=== PATIENT | female | born 1990 | race Hispanic/Latino ===

== ENCOUNTER → 2023-01-08 16:12 | Outpatient (CLI) | payer OTHER, SELFPAY ==
--- NOTE | 2023-01-08 16:15 | DI.US.S_ITS ---
PROCEDURE: US OB <= 14 WEEKS FETUS INDICATIONS: Dating and viability OUTSIDE/PRIOR DATING DATA: Last menstrual period (LMP): Unknown LMP-based estimated date of delivery (KRISTIN): Unknown First dating scan (date and location): 01/08/2023 Estimated date of delivery (KRISTIN) from first dating scan: 08/24/2023 The calculations are made using the working KRISTIN of 08/24/2023 TECHNIQUE: Real-time scanning was performed of the fetus and maternal pelvic organs, with image documentation. Endovaginal scanning was also performed to better visualize the fetus and maternal ovaries. COMPARISON: None. FINDINGS: Embryo: Single intrauterine gestational sac is seen with fetus and yolk sac seen. [place]-rump length measures 1.31 cm. Estimated gestational age is 7 weeks, 3 days. Heart rate: 180 beats per minute. Maternal organs: Ovaries are not well seen. No gross abnormality is seen in bilateral adnexa. IMPRESSION: 1. Single live intrauterine gestation with fetus and yolk sac seen. heart rate is 180 beats per minute. Estimated gestational age based on current study is 7 weeks, 3 days. We strive to produce accurate, complete, and clear reports of imaging services. To assist us in improving patient care, this report was composed using standard report templates and voice recognition software. Therefore, it may contain abnormal punctuation, insertions and/or omissions. Occasional wrong-word or sound-alike substitutions may occur. Though we review the report and make efforts to correct it, we do recommend that the report be read carefully in proper context to recognize any text inaccuracies. Dictated by: Marc Cochran M.D. on 01/09/2023 at 9:06 Approved by: Marc Cochran M.D. on 01/09/2023 at 9:07
== END ==
PROVIDERS: Referring Provider Obstetrics & Gynecology; Visit Provider Obstetrics & Gynecology
DX: Z34.81 Encounter for supervision of other normal pregnancy, first trimester (principal); Z3A.01 Less than 8 weeks gestation of pregnancy
CPT/HCPCS: 76801

== ENCOUNTER → 2023-02-28 14:32 | Outpatient (CLI) | payer OTHER, SELFPAY ==
[2023-02-28 15:36] LABS: Add Manual Diff / Slide Review NO; Basophils Absolute Auto 0 /uL (0-100); Basophils Percent Auto 0.2 % (0-2); Eosinophils Absolute Auto 100 /uL (0-450); Eosinophils Percent Auto 0.7 % (2-4); Lymphocytes Absolute Auto 1700 /uL (1100-4500); Lymphocytes Percent Auto 18.2 % (25-40); Mean Corpuscular HGB Conc 34.2 % (30-36); Mean Corpuscular Hemoglobin 27.5 PG (26-34); Mean Corpuscular Volume 80.5 fL (80-100); Monocytes Absolute Auto 500 /uL (0-900); Monocytes Percent Auto 4.9 % (3-14); Neutrophils Absolute Auto 7100 /uL (1500-7000); Platelet Count 208 X10^3/uL (150-400); Red Blood Cell Count 4.35 X10^6/uL (4.0-5.2); Red Cell Distribution Width 14.3 % (11.6-14.8); White Blood Cell Count 9.3 X10^3/uL (4.5-11.0)
[2023-02-28 17:18] LABS: Thyroid Stimulating Hormone 0.309 uIU/mL (0.47-4.68)
[2023-02-28 18:14] LABS: Free T4, Direct Thyroxine 1.01 ng/dL (0.78-2.19)
[2023-03-01 07:03] LABS: RPR Screen Non Reactive (Non Reactive); x Labcorp Estim. Avg Glu (eAG) 137 mg/dL (.); x Labcorp Hemoglobin A1c 6.4 % (4.8-5.6)
[2023-03-01 08:09] LABS: Varicella IgG Antibody 919 index (Immune >165)
[2023-03-03 12:38] LABS: AFP, Serum 17.9 ng/mL (.); Estriol, Free 0.54 ng/mL (.); Inhibin A, MoM 1.03 (.); Maternal Ethnicity Other (.); Maternal Weight 225 lbs (.); Number of Fetuses No (.); OSBR Risk 1 IN 10000 (.); Results Report (.); Test Results *Screen Negative* (.); hCG, Serum 73005 mIU/mL (.)
[2023-03-03 14:14] LABS: Hepatitis B Surface Antigen NEGATIVE s/c (NEGATIVE); Rubella Antibody IgG 24.6 IU/mL (>15)
[2023-03-03 14:33] LABS: HIV 1 & 2 Ab/Ag 4th Gen Combo NEGATIVE (NEGATIVE); Hep C Virus Ab w/Reflex Quant NEGATIVE s/c (NEGATIVE)
== END ==
PROVIDERS: Referring Provider Obstetrics & Gynecology; Visit Provider Obstetrics & Gynecology
DX: Z34.81 Encounter for supervision of other normal pregnancy, first trimester (principal); Z83.49 Family history of other endocrine, nutritional and metabolic diseases; R73.03 Prediabetes; Z34.82 Encounter for supervision of other normal pregnancy, second trimester; Z3A.15 15 weeks gestation of pregnancy
CPT/HCPCS: 36415; 80055; 82105; 82677; 83036; 84439; 84443; 84702; 86336; 86787; 86803; 86850; 86900; 86901; 87077; 87086; 87186; 87389

== ENCOUNTER → 2023-03-28 13:05 | Outpatient (CLI) | payer OTHER, SELFPAY ==
--- NOTE | 2023-03-28 13:07 | DIAB.GDA ---
Initial Gestational Diabetes Assessment Name: Marcy Joseph Date: 03/28/23 Time: 1pm Dx: Gestational Diabetes Pt with three children: 6y, 3y, 2y. 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 Had GDM with two of three, no formal DM education in previous pregnancies. Pt states was not the best at checking BGs and just tried to avoid eating sweets. Pt not taking vitamin per concerns of , unclear barriers/concerns. Discussed importance of calcium and iron containing foods during . Emailed pt iron and calcium content of food list. Per recent lab draw, Hgb 12.0 (lowest side of normal) with Hct 35.0 L. Pt will benefit from further education on iron containing foods and monitoring for adequate intake as SENIOR QA ANALYST in is 28mg/d which is difficult to get from food sources alone. Provider: Aime KRISTIN: 08/20/23 P: 3 Weeks: 19w Diet Recall: B: 2 eggs and arnold with grits or cream of wheat or oatmeal fruit around lunchtime L: sandwiches, beans/rice/meat D: protein (chicken, ground beef, steaks), veg, and a starch ( white rice or pasta) Pt craves breakfast cereal during . Trying to not purchase processed snacks, eat them out at a family if at all. Pt recently enrolled in WIC program, finds it helpful for increased groceries in the home. Pts children benefit from free summer meals through the school district of [place]. Anthropometrics: Wt: 225# Prepregnancy wt: 227# Wt changes: -2# Self-Monitoring Blood Glucose: Pt has glucometer but test strips are . Pt has not yet started testing BGs or taking Metformin. Pt had UTI so wanted to finish abx before starting metformin doesn't like to take more than 1 medication at a time. Date Pre Post Pre Post Pre Post HS Diabetes Medications: 500mg Metformin bid (not yet started) Pertinent Labs: A1c 6.4 (prediabetes) Nutrition Rx: Carbohydrates: Meal: 45-g lunch and dinner; 30g breakfast Snack: 15-30g Nutrition Diagnosis: Altered nutrition related lab value r/t GDM dx aeb recent OGTT Intervention: This participant was receptive. Provided appropriate educational handouts. Discussed the following topics: GDM pathophysiology and impact of hyperglycemia on mom and baby Risk for T2DM for mom and baby in the future Ways to reduce risk T2DM Plate Method, meal timing, carb counting, pairing macronutrients and spreading out CHO for better BG management Blood glucose goals (FBG: <95 and 1 hour <140 mg/dL); importance of checking 4x per day (FBG and pc) Impact of macronutrients on blood glucose Recommended servings for carbohydrates at meals and snacks Brainstormed appropriate meal plan based on her food preferences Role of physical activity and following provider guidelines for safety Goals: Purchase new test strips as current box is as of 11/01/22.- NEW Pt will start checking BG FBG and 1 or 2 h PP tomorrow- New Pt will start taking Metformin 500mg bid tomorrow- New Meet 100% Calcium and Iron SENIOR QA ANALYST through food intake. -New Follow-up: RD follow-up in two weeks Daisy Edmonds RD Registered Dietitian T: [phone] F: [phone] Thank you for this referral
== END ==
PROVIDERS: Absent Provider Obstetrics & Gynecology; Family Provider Obstetrics & Gynecology; PCP Hospitalist; Referring Provider Obstetrics & Gynecology; Visit Provider Obstetrics & Gynecology
DX: O24.415 Gestational diabetes mellitus in pregnancy, controlled by oral hypoglycemic drugs (principal); O23.42 Unspecified infection of urinary tract in pregnancy, second trimester; Z3A.19 19 weeks gestation of pregnancy; Z71.3 Dietary counseling and surveillance
CPT/HCPCS: 87086; 97802

== ENCOUNTER → 2023-03-28 15:14 | Outpatient (CLI) | payer OTHER, SELFPAY | PROVIDERS: Family Provider Obstetrics & Gynecology; PCP Hospitalist; Visit Provider Obstetrics & Gynecology | DX: O23.40 Unspecified infection of urinary tract in pregnancy, unspecified trimester (principal) | CPT/HCPCS: 87086 ==

== ENCOUNTER → 2023-04-02 10:21 | Outpatient (CLI) | payer OTHER, SELFPAY ==
--- NOTE | 2023-04-02 10:22 | DI.US.S_ITS ---
PROCEDURE: US OB >= 14 WEEKS FETUS INDICATIONS: ANATOMY OUTSIDE/PRIOR DATING DATA: Last menstrual period (LMP): Unsure LMP-based estimated date of delivery (KRISTIN): 08/24/2023 First dating scan (date and location): 01/08/2023 Estimated date of delivery (KRISTIN) from first dating scan: 08/24/2023. The calculations are made using the working KRISTIN of 08/24/2023 TECHNIQUE: Real-time scanning was performed of the fetus, with image documentation and biometric measurements. Endovaginal scanning: Not indicated COMPARISON: [facility], OB <= 14 WEEKS FETUS, 01/08/2023, 16:31. FINDINGS: General: A single living intrauterine gestation is present. Presentation: Vertex. Placenta: Placental position is posterior without previa. Amniotic fluid index: 13.4 cm, normal range is 5-24 cm. Single deepest vertical pocket is 4.9 cm. heart rate: 139 beats per minute. Maternal cervical canal: 4.0 cm long. Normal lower limit is 2.5 cm. biometrics: Biparietal diameter: 4.6 cm, 19 weeks, 6 days. Head circumference: 16.9 cm, 19 weeks, 4 days. Abdominal circumference: 15.5 cm, 20 weeks, 5 days. Femur length: 3.5 cm, 20 weeks, 0 day. Clinically estimated gestational age: 19 weeks, 3 days. Composite gestational age from present scan: 20 weeks, 2 days Estimated weight and percentile: 368 g, 97%. Anatomic survey: Neuro: Ventricles are non-dilated at less than 10 mm. Cisterna magna is normal at 3-11 mm. Cerebellum is normal in size and morphology. Nuchal skin fold: Normal at less than 6 mm between 14-21 weeks gestational age. Face: Nose and lips, facial profile are not well seen. Spine: No evidence for spina bifida. Heart: 4-chambered heart is present. Outflow tracts are not well seen. Diaphragm: Diaphragm is not well seen. Stomach: Left-sided stomach is present. Kidneys: No hydronephrosis. Normal is less than 5 mm in 2nd trimester, less than 7 mm in 3rd trimester. Cord: 3-vessel cord has orthotopic insertion. Bladder: Normal in size. Extremities: All 4 extremities identified. IMPRESSION: 1. Single live intrauterine gestation with fetus in vertex presentation. heart rate is 139 beats per minute. Normal amount of amniotic fluid. Normal growth. Estimated weight is at 97%. 2. facial profile, outflow tracts and diaphragm are not well seen on this study due to position. Rest of the anatomic survey is within normal limits. We strive to produce accurate, complete, and clear reports of imaging services. To assist us in improving patient care, this report was composed using standard report templates and voice recognition software. Therefore, it may contain abnormal punctuation, insertions and/or omissions. Occasional wrong-word or sound-alike substitutions may occur. Though we review the report and make efforts to correct it, we do recommend that the report be read carefully in proper context to recognize any text inaccuracies. Dictated by: Marc Cochran M.D. on 04/02/2023 at 12:22 Approved by: Marc Cochran M.D. on 04/02/2023 at 12:25
== END ==
PROVIDERS: Family Provider Obstetrics & Gynecology; PCP Hospitalist; Referring Provider Obstetrics & Gynecology; Visit Provider Obstetrics & Gynecology
DX: Z34.92 Encounter for supervision of normal pregnancy, unspecified, second trimester (principal); Z3A.20 20 weeks gestation of pregnancy
CPT/HCPCS: 76811

== ENCOUNTER → 2023-04-11 16:48 | Outpatient (CLI) | payer OTHER, SELFPAY ==
--- NOTE | 2023-04-11 16:50 | DIAB.GDFU ---
Follow-up Gestational Diabetes Assessment Name: Marcy Joseph Date: 04/11/23 Time: 9:30am Dx: Gestational Diabetes Provider: Aime JOAQUIN met with patient via telehealth visit which pt consented to. She was at home, RD at hospital office. Pt started taking 500mg metformin bid on 04/01/23. There was some confusion as to where her glucometer test strips were sent, [facility] [employer], so she has not picked them up yet. Pt has only checked BG four times since last visit and is using test strips. Pt states worry if she should be taking Metformin if FBG is low at 87. Reviewed c pt this BG is in excellent range, goal range for FBG 70-95. Educated pt on effects of metformin. Pt only has 3 FBGs, two of which are above goal (107, 109). Pt has one one hr PP at 159. These values indicate pts GDM is suboptimally managed, however, additional data needed to trend this. Per [facility], pt to increase metformin to 1,000mg bid next visit. 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 Provided supportive counselling on strategies to support good BG management and tracking. Self-Monitoring Blood Glucose: Date Pre Post Pre Post Pre Post HS 87 159 107 109 Diabetes Medications: 500mg Metformin BID Pertinent Labs: A1c 6.4 Nutrition Rx: Carbohydrates: Meal: 45-g lunch and dinner; 30g breakfast Snack: 15-30g Nutrition Diagnosis: Altered nutrition related lab value r/t GDM dx aeb recent OGTT Intervention: This participant was very receptive. Provided appropriate educational handouts. Discussed the following topics: Recent blood sugar results and impact of food and hormones Review of macronutrient recommendations during Goals: Obtain new test strips from pharmacy- not yet met Check FBG daily as well as 1hPP- not yet met Set timer for 1h after start of meal to check PP BG- NEW Follow-up: RDN follow-up in two weeks immediately following OB visit. Daisy Edmonds MS RD Clinical Dietitian Thank you for this referral
== END ==
PROVIDERS: Family Provider Obstetrics & Gynecology; PCP Hospitalist; Referring Provider Obstetrics & Gynecology; Visit Provider Obstetrics & Gynecology
DX: O09.299 Supervision of pregnancy with other poor reproductive or obstetric history, unspecified trimester (principal); O99.210 Obesity complicating pregnancy, unspecified trimester; O24.415 Gestational diabetes mellitus in pregnancy, controlled by oral hypoglycemic drugs; Z71.3 Dietary counseling and surveillance
CPT/HCPCS: 97803

== ENCOUNTER → 2023-04-25 10:27 | Outpatient (CLI) | payer OTHER, SELFPAY ==
--- NOTE | 2023-04-25 17:32 | DIAB.GDFU ---
Follow-up Gestational Diabetes Assessment Name: Marcy Joseph Date: 04/25/23 Time: 10:30am Dx: Gestational Diabetes Provider: Aime P: 3 Weeks: 23 Diet Recall: Pt reports increased stress due to being away unexpectedly for past 2w, predicts will be away for at least another 2w. Because of not having help with three children, pt not focusing on her GDM as well as she would like to. Infrequent BG checks, both PP and FBG. Missing doses of Metformin as well. Pt checking FBG on average q3d averaging 105-110 and has checked PP BG 4 times in past 1mo with 3 of 4 being above range. Pt reports lots of snacking with the children and eating cereal for breakfast. Self-Monitoring Blood Glucose: Date Pre Post Pre Post Pre Post HS 04/01 87 04/02 109 04/07 107 04/11 103 195 04/15 210 04/18 119 163 04/22 04/24 105 111 Diabetes Medications: upping Metformin to 1,000 bid Pertinent Labs: Nutrition Rx: Carbohydrates: Meal: 45-g lunch and dinner; 30g breakfast Snack: 15-30g Nutrition Diagnosis: Altered nutrition related lab value r/t GDM dx aeb GDM dx managed with diet and metformin in 2 of 3 pregnancies. Intervention: 1. Discussed pts barriers to GDM care including being busy and not having spouse at home to help. Discussed infrequent BG checks prior to spouse's departure. Encouraged pt to keep glucometer somewhere she can see it and setting 1h timer when she begins a meal as well as timer twice daily to take meds. 2. Discussed possibility of pt wearing continuous glucose monitor to remove barrier of frequent glucose finger sticks. Pt does not believe insurance will cover CGM without insulin use. Encouraged pt to take meds as directed with glucose checks daily until our next visit to see if current Rx adequately managing BGs. Goals: Pt will check and log FBG every morning- Ongoing Pt will pair protein and fiber with every meal- Ongoing Pt will set timers on phone to repeat twice daily as reminder to take metformin. -New Follow-up: RD follow-up in three weeks Daisy Edmonds MS RD T: [phone] F: [phone] Thank you for this referral
== END ==
PROVIDERS: Absent Provider Hospitalist; Family Provider Obstetrics & Gynecology; PCP Hospitalist; Referring Provider Obstetrics & Gynecology; Visit Provider Obstetrics & Gynecology
DX: O09.299 Supervision of pregnancy with other poor reproductive or obstetric history, unspecified trimester (principal); O99.210 Obesity complicating pregnancy, unspecified trimester; O24.415 Gestational diabetes mellitus in pregnancy, controlled by oral hypoglycemic drugs; Z3A.23 23 weeks gestation of pregnancy; Z71.3 Dietary counseling and surveillance
CPT/HCPCS: 97803

== ENCOUNTER → 2023-05-15 15:28 | Outpatient (CLI) | payer OTHER, SELFPAY ==
[2023-05-15 16:41] LABS: Hemoglobin 11.8 g/dL (12.0-16.0)
[2023-05-15 17:48] LABS: Hemoglobin A1C% w Est Avg Glu 5.3 % (4.0-6.0)
== END ==
PROVIDERS: Family Provider Obstetrics & Gynecology; PCP Hospitalist; Referring Provider Specialist; Visit Provider Specialist
DX: O24.112 Pre-existing type 2 diabetes mellitus, in pregnancy, second trimester (principal); Z3A.26 26 weeks gestation of pregnancy
CPT/HCPCS: 36415; 83036; 85014; 85018

== ENCOUNTER → 2023-07-15 11:38 | Outpatient (CLI) | payer OTHER, SELFPAY ==
--- NOTE | 2023-07-16 09:38 | DIAB.GDFU ---
Addendum entered by Enma Mendez 07/18/23 14:53: NPH and Lispro rx'd. Discussed injection technique, hypoglycemia treatment, and when/how much to inject over the phone. Additionally, pt had questions regarding when to schedule next ob visit and nst. Provided phone numbers for scheduling and encouraged weekly follow-ups with ob per provider notes. She verbalized understanding. Original Note: Follow-up Gestational Diabetes Assessment Name: Marcy Joseph Date: 07/15/23 Time: 1145a-1230p Dx: Gestational Diabetes Provider: Aime KRISTIN: 08/20/23 Weeks: 34-35 Marcy presents for follow-up visit with spouse. PMH of GDM with two previous pregnancies. Reports consistently elevated FBG and often elevated postprandial with max dose Metformin. Would benefit from insulin, but she is reluctant to this on initial discussion. States she does not like taking medications. After review of pros/cons of insulin, she is open to injections. RD has contacted OB provider regarding this. Diet recall indicates high carb intake, impacting BG. Not taking vitamin. Aims for Ca and iron via diet, ie milk, beans, meat sources. She is having a boy! Reports plans for induction at 38 weeks. Limited knowledge regarding Listeria risk foods. Limited knowledge on impact of hyperglycemia on baby, ie macrosomia, hypoglycemia. US in 03/2023 indicated 97th percentile for growth. Denies h/o macrosomia with other children, with exception to son that was born at 34 weeks at 7#. Diet Recall: 10a: eggs, sausage/arnold and oatmeal or grits or cream of wheat x 1.5c OR cereal x 3 cups with milk sn: nothing or fruit 1p: deli meat sandwich with veggies +/- chips OR 2c rice, 1c beans, and ground beef 4p: 2-3c rice, meat and veg sn: nothing or more dinner or cereal Beverages: 20oz water, 24oz milk, occasional juice or coke zero Anthropometrics: Wt: 223# at OB today Prepregnancy wt: 227 Physical Activity: Occasional walks with kids, less lately due to weather. Self-Monitoring Blood Glucose: No log book today. Reports FBG consistently 100-110 mg/dl. Reports 1 hour pc readings 130-160mg/dl. Diabetes Medications: 1000mg Metformin BID Pertinent Labs: HgA1c 6.4% Nutrition Rx: Carbohydrates: Meal: 45-60g lunch and dinner; 30-45g breakfast Snack: 15-30g Nutrition Diagnosis: Excessive CHO intake r/t stage of change barriers aeb pt report, hyperglycemia and diet recall Physical inactivity r/t stage of change and weather aeb pt report Inconsistent protein intake r/t nutrition knowledge deficit aeb pt report, diet recall, and hyperglycemia Intervention: This participant was very receptive. Provided appropriate educational handouts. Discussed the following topics: Recent blood sugar results and impact of food and hormones Risk factors for GDM GDM BG goals at 1 and 2 hours Plate Method, CHO and pro recs for and GDM, macro pairing Insulin education: safety during , impact on FBG Hyperglycemia impact on baby: macrosomia, hypoglycemia post Listeria education: warming deli meats to reduce risk Physical activity after meals and impact on hyperglycemia Goals: Reduce rice portion to 1c per meal Add protein to cereal meal (nuts, eggs) Follow-up: JUANITO ARREAGA follow-up geno pending insulin rx. RD messaged OB provider to move forward with insulin therapy if provider agrees. RD will then schedule pt for visit for insulin education. Otherwise, f/u in one week. Enma Mendez RDN, [place] Certified Diabetes Care and Marinator T: [phone] F: [phone] [email or web address] Thank you for this referral
== END ==
PROVIDERS: Family Provider Obstetrics & Gynecology; PCP Hospitalist; Referring Provider Obstetrics & Gynecology; Visit Provider Obstetrics & Gynecology
DX: O24.415 Gestational diabetes mellitus in pregnancy, controlled by oral hypoglycemic drugs (principal); Z3A.24 24 weeks gestation of pregnancy; Z71.3 Dietary counseling and surveillance
CPT/HCPCS: 97803

== ENCOUNTER → 2023-07-23 15:18 | Outpatient (CLI) | payer OTHER, SELFPAY ==
--- NOTE | 2023-07-23 16:26 | DIAB.GDFU ---
Follow-up Gestational Diabetes Assessment: Personal CGM Placement Name: Marcy Joseph Date: 07/23/23 Time: 320-410p Dx: Gestational Diabetes Provider: Aime KRISTIN: 08/20/23 Weeks: 34-35 Marcy presents today for CGM placement and insulin education, accompanied by spouse. Today she brought her FSL CGM and Lispro pen along with pen needles. Downloaded appropriate robina. She self placed CGM with direction. In reviewing her robina there is not an alarm feature for this FSL CGM. She needs this feature to help reduce risk of severe lows/highs. Encouraged her to discuss a change in rx with OB. RD will send a message to provider's staff as well. Plans for induction at 38 weeks. Continues with hyperglycemia per report. Has started pairing CHO and protein. Also aiming to reduce rice portion and frequency. Self-Monitoring Blood Glucose: Placed CGM today. Diabetes Medications: 1000mg Metformin BID NPH 15u HS Lispro 5u TID Pertinent Labs: HgA1c 6.4% Intervention: This participant was very receptive. Provided appropriate educational handouts. Discussed the following topics: Recent blood sugar results Risk of T2DM CGM self placement with guidance Differences between CGMs and need for alerts Insulin injections: where, how, when, action of insulins Rule of 15 to treat lows Goals: Reduce rice portion to 1c per meal- met Add protein to cereal meal (nuts, eggs)- met Start insulin- new Discuss CGM rx with provider- new Follow-up: JUANITO ARREAGA follow-up over phone or in person in one week. Asked that she schedule with RD same day she will see OB next week. Also to message RD tomorrow with comfort in injections. RD will review CGM results remotely prior to next week. Enma Mendez RDN, [place] Certified Diabetes Care and Ancillary Services Manager T: [phone] F: [phone] [email or web address] Thank you for this referral
== END ==
PROVIDERS: Family Provider Obstetrics & Gynecology; PCP Hospitalist; Referring Provider Obstetrics & Gynecology; Visit Provider Obstetrics & Gynecology
DX: O24.414 Gestational diabetes mellitus in pregnancy, insulin controlled (principal); Z3A.34 34 weeks gestation of pregnancy; Z71.3 Dietary counseling and surveillance
CPT/HCPCS: 95249

== ENCOUNTER → 2023-07-23 16:31 | Outpatient (CLI) | payer OTHER, SELFPAY ==
[2023-07-24 15:28] LABS: Strep Grp B PCR NEG for Grp B Strep
== END ==
PROVIDERS: Family Provider Obstetrics & Gynecology; PCP Hospitalist; Visit Provider Obstetrics & Gynecology
DX: Z34.83 Encounter for supervision of other normal pregnancy, third trimester (principal); Z3A.36 36 weeks gestation of pregnancy; O24.414 Gestational diabetes mellitus in pregnancy, insulin controlled; Z3A.34 34 weeks gestation of pregnancy; Z71.3 Dietary counseling and surveillance
CPT/HCPCS: 87653; 95249

== ENCOUNTER 2023-07-23 17:00 | Outpatient (CLI) | payer OTHER, SELFPAY | END 2023-07-23 18:16 | disposition home or self-care (01) | LOC: OB 07-29 06:50 | PROVIDERS: Family Provider Obstetrics & Gynecology; PCP Hospitalist; Referring Provider Obstetrics & Gynecology; Visit Provider Obstetrics & Gynecology | DX: Z36.9 Encounter for antenatal screening, unspecified (principal); Z34.83 Encounter for supervision of other normal pregnancy, third trimester; Z3A.36 36 weeks gestation of pregnancy | CPT/HCPCS: 59025; 87653; 95249; G0378; G0379 ==

== ENCOUNTER → 2023-07-30 15:09 | Outpatient (CLI) | payer OTHER, SELFPAY ==
--- NOTE | 2023-07-30 16:48 | DIAB.GDFU ---
Follow-up Gestational Diabetes Assessment Name: Marcy Joseph Date: 07/30/23 Time: 708-452p Dx: Gestational Diabetes Provider: Aime KRISTIN: 08/20/23 Weeks: 37 Marcy presents today for DM follow-up. Review of CGM reports indicates elevations are consistent after breakfast, often after dinner, and many times just over 95 for fasting. Likely needs additional insulin coverage, which she is reluctant about. She is particularly reluctant about increasing NPH at night. Open to increasing mealtime insulin. States she will often skip evening Metformin dose unless eating something higher in carb. Reports FH of DM with both parents and maternal family members. States mother's provider has recommended insulin therapy for her mother. Also, last HgA1c indicates prediabetes status at 6.4%. Very high risk of T2DM . Plans to breastfeed. H/o with other children x up to 3 months. Plan for induction next week on 08/07/23. Unsure of plans for additional pregnancies. Sees Ob after this visit at 4p. Cut our visit short so she can make her appt today. Self-Monitoring Blood Glucose: Per CGM reports, most elevations are after breakfast, some after dinner. Also some slight elevations in fasting. 81% under 140mg/dl, 18% >140mg/dl. Diabetes Medications: 1000mg Metformin BID NPH 15u HS Lispro 5u TID Pertinent Labs: HgA1c 6.4% Intervention: This participant was very receptive. Provided appropriate educational handouts. Discussed the following topics: Recent blood sugar results and impact of food and hormones Encouraged increase in NPH to help FBG and increase to mealtime insulin by 2u Review of macronutrient recommendations during Discussed risk of GDM in future pregnancies and importance of early BG management Benefits, resources, and nutrition for recommendations for nutrition and physical activity recommendations for T2DM risk reduction OGTT at 6-12 weeks Checking blood sugars twice per week (goal: fasting <100 mg/dL and 2 hour pc <140 mg/dL) until 6 week check-up or utilization of CGM HgA1c q 1-3 years. Goals: Start insulin- met Discuss CGM rx with provider- met Increase insulin: NPH 17u Breakfast 7u Dinner 6-7u Follow-up: RDN CDCES follow-up prn. Encouraged follow-up for DM education particularly if diagnosed with T2DM or having elevations per CGM. Enma Lungren, RDN, [facility] Certified Diabetes Care and Group Insurance Special Agent T: [phone] F: [phone] [email or web address] Thank you for this referral
== END ==
LOC: DIET 15:10
PROVIDERS: Family Provider Obstetrics & Gynecology; PCP Hospitalist; Referring Provider Obstetrics & Gynecology; Visit Provider Obstetrics & Gynecology
DX: O24.414 Gestational diabetes mellitus in pregnancy, insulin controlled (principal); Z3A.37 37 weeks gestation of pregnancy; Z71.3 Dietary counseling and surveillance
CPT/HCPCS: G0108

== ENCOUNTER 2023-07-30 16:45 | Outpatient (CLI) | payer OTHER, SELFPAY | END 2023-07-30 17:15 | disposition home or self-care (01) | LOC: OB 07-31 12:26 | PROVIDERS: Family Provider Obstetrics & Gynecology; PCP Hospitalist; Referring Provider Obstetrics & Gynecology; Visit Provider Obstetrics & Gynecology | DX: O24.414 Gestational diabetes mellitus in pregnancy, insulin controlled (principal); Z3A.37 37 weeks gestation of pregnancy; Z71.3 Dietary counseling and surveillance | CPT/HCPCS: 59025; G0378; G0108; G0379 ==

== ENCOUNTER 2023-08-02 02:51 | Inpatient (IN) | payer OTHER, SELFPAY ==
[2023-08-02] MEDS: LACTATED RINGERS 1,000 ML 999 ML IV (04:38)
[2023-08-02 04:46] LABS: Add Manual Diff / Slide Review NO; Basophils Absolute Auto 100 /uL (0-100); Basophils Percent Auto 0.5 % (0-2); Eosinophils Absolute Auto 200 /uL (0-450); Eosinophils Percent Auto 1.2 % (2-4); Hematocrit 33.9 % (36-46); Hemoglobin 11.6 g/dL (12.0-16.0); Lymphocytes Absolute Auto 2600 /uL (1100-4500); Lymphocytes Percent Auto 19.6 % (25-40); Mean Corpuscular HGB Conc 34.3 % (30-36); Mean Corpuscular Hemoglobin 28.3 PG (26-34); Mean Corpuscular Volume 82.3 fL (80-100); Monocytes Absolute Auto 900 /uL (0-900); Monocytes Percent Auto 7.2 % (3-14); Neutrophils Absolute Auto 9400 /uL (1500-7000); Neutrophils Percent Auto 71.5 % (50-75); Platelet Count 186 X10^3/uL (150-400); Red Blood Cell Count 4.11 X10^6/uL (4.0-5.2); Red Cell Distribution Width 14.4 % (11.6-14.8); White Blood Cell Count 13.2 X10^3/uL (4.5-11.0)
--- NOTE | 2023-08-02 05:35 | P.HPOB_ITS ---
OB HPI Date/Time Date of admission: 08/02/23 Date Patient Seen: 08/02/23 Time Patient Seen: 05:38 History of Present Condition Chief complaint: waterbroke : 5 Para: 3 Estimated Date of Delivery: 08/20/23 Estimated Gestational Age (weeks): 37+3 Narrative: Marcy Joseph is a 32 year old admitted w/ [facility] late on the evening of 08/01/2023 who presents in early labor. course has complicated by maternal compliance issues and gestational diabetes for which she has most recently initiated on NPH in the evening and AC lispro with all of her meals. Blood sugars have been under reasonable control the infant is LGA by clinical assessment. GBS is negative. Indications Indication for induction OB: gestational diabetes History of Present care: good care Dating criteria: LMP confirmed by 1st trimester US Ultrasounds: normal mid trimester US (EFW 97th percentile) Preadmission Labs Blood type: A (+) positive -: Antibody screen: negative, GBS status: negative, HBsAG: negative, HIV: negative and RPR/VDLR: negative -: Chlamydia screen: not detected and Gonorrhea screen: not detected -: Rubella: immune and Varicella: immune HCT: 33.9 HCAB: negative PAP: Normal Quad screen: Normal Prior (ies) History: x 3 Evaluation Evaluation Baseline heart rate: 130 Variability: Moderate (11-25) monitor accelerations: Present Monitor Decelerations: Absent Contraction Frequency (minutes): 2 Uterine Contraction Intensity: Strong/Firm Category of Tracing: Reactive Status: Category l Dilation (cm): 5 Effacement (%): 90 Dilation: >/=5 cm Effacement: >/=80% station: -1 Position of cervix: mid Consistency: soft Ruiz score: 11 Non-invasive Membranes Rupture Test: positive [facility] Medical History (Updated 07/31/23 @ 10:39 by Bj Salomon MD) Chlamydia (~2014) Gestational diabetes mellitus History of gestational diabetes in prior , currently History of premature delivery, currently Prediabetes Family history of hypothyroidism Hyperlipidemia Surgical History (Updated 07/22/23 @ 13:39 by Ramila Hickman) Anesthesia Dental crown present Precipitous delivery delivery Vaginal delivery [place] teeth extracted (~2013) Family History (Updated 07/22/23 @ 13:40 by Ramila Hickman) Mother Diabetes mellitus Glaucoma Hyperlipidemia Father Diabetes mellitus Family estrangement Family/Other Diabetes mellitus Breast cancer Sister Hypothyroidism Social History marital status: number of children: 3 household members: spouse and children lives independently: Yes caregiver/support person: Yes housing: condominium ([facility]) pets and animals: Yes (1 dog, 1 cat; aware of toxo precautions) education level: college (some college) occupational status: unemployed current occupational exposures/hazards: No special aung needs: No travel history: over 6 months ago seatbelt use: always helmet use: No (Counseled to do so when biking) water heater temp set < 120 deg: No working smoke detector in home: Yes fire extinguisher in home: Yes carbon monox detector in home: Yes firearms in home: No do you feel safe at home: Yes Smoking Status: Former smoker Tobacco: How many years used: 5 (on-and-off, not daily) second hand exposure: No alcohol intake: never substance use type: does not use and marijuana (infrequently, not while /) during the past year weight has: remained stable well-balanced diet: rarely or never daily servings fruits/ve-1 caffeine: No (rarely) Type(s) of exercise: walking frequency: daily additional social history: Will be traveling at beginning of this . Pt will have US before she leaves and f/u to see Dr. Salomon when she gets back (no earlier than end of February). Advised pt to learn of the local hospital(s) where she is traveling in case of emergency while she is gone. Meds Home Medications and Allergies Home Medications Medication Instructions Recorded Confirmed Type prenat.vits,teresa,dnx-rdxw-kmrib 1 tab PO DAILY 01/07/23 07/30/23 History metformin 500 mg tablet 1,000 mg (2 x 500 mg) PO BID for 04/25/23 07/30/23 Rx diabetes mellitus #360 tabs insulin NPH isoph U-100 human 100 15 unit (0.15 mL) SUBCUT QPM #15 mL 07/18/23 07/30/23 Rx unit/mL (3 mL) subcutaneous pen (Humulin N NPH U-100 Insulin KwikPen) insulin lispro protamine-lispro 5 unit (0.05 mL) SUBCUT .TIDAC #15 07/18/23 07/30/23 Rx 100 unit/mL (75-25) subcutaneous mL pen pen needle, diabetic 31 gauge x #100 ea 07/18/23 07/30/23 Rx 5/16 (1st Tier Unifine Pentips Plus) blood-glucose sensor (FreeStyle #1 ea 07/23/23 07/30/23 Rx Christy 3 Sensor device) Allergies Allergy/AdvReac Type Severity Reaction Status Date / Time No Known Drug Allergies Allergy Unverified 07/30/23 15:51 Review of Systems Review of Systems Narrative: Problem-specific ROS positives included in HPI OB Exam Vital signs Blood Pressure: 110/63 Pulse Rate: 100 Temperature: 97.3 F HENMT Head: normal to inspection, normocephalic and atraumatic Eyes General: appearance normal, both eyes and all related structures Resp Effort & Inspection: normal respiratory effort and able to speak in complete sentences Auscultation: clear to auscultation bilaterally Cardio Rate: regular rate Rhythm: regular rhythm Heart Sounds: S1 normal, S2 normal and no murmurs Extremities Lower extremity: Yes normal to inspection GI Inspection: normal to inspection Palpation: Yes soft and Yes no hepatosplenomegaly Uterus Location (Fundal Height): 38 Presentation: vertex Estimated Weight (lbs): 8 Amniotic Fluid: clear Objective Labs 08/02/23 04:30 Labs: Laboratory Results - last 24 hr 08/02/23 04:30 WBC 13.2 H RBC 4.11 Hgb 11.6 L Hct 33.9 L MCV 82.3 MCH 28.3 MCHC 34.3 RDW 14.4 Plt Count 186 Neut % (Auto) 71.5 Lymph % (Auto) 19.6 L [place] % (Auto) 7.2 Eos % (Auto) 1.2 L Baso % (Auto) 0.5 Neut # (Auto) 9400 H Lymph # (Auto) 2600 [place] # (Auto) 900 Eos # (Auto) 200 Baso # (Auto) 100 Assessment and Plan Assessment and Plan Assessment and Plan narrative: ASSESSMENT 1. Intrauterine , 37+3 wks EGA 2. Gestational DM, Type A2 3. GBS negative status PLAN 1. Admit for labor and delivery 2. See admission orders Time Spent with Patient Total time spent with greater than 50% in coordination of care (as documented) at patient's floor/unit and/or counseling patient:: 15-24 minutes
[2023-08-02 05:48] VITALS: BP 110/63; PULSE 100; TEMP 36.3
[2023-08-02] MEDS: LACTATED RINGERS 1,000 ML 100 ML IV (06:06)
[2023-08-02] MEDS: OXYTOCIN PREMIX 30 UNIT/500 ML PLAST..BAG 200 UNIT IV (06:58)
--- NOTE | 2023-08-02 07:25 | PM.OBPRVD ---
Labor & Delivery Delivery date: 08/02/23 Intrapartal Events: None Cervical ripening method: none Induction method: none Delivery monitor: external FHT and external uterine Route of delivery: Episiotomy description: None L&D Laceration Description: Perineal - 1st Degree Delivery repair: chromic Estimated blood loss (mL): 200 Anesthesia Type: Local (1% lidocaine without epinephrine) Complications: None Narrative: Following manual reduction of a small anterior lip, the patient pushed a single time and delivered spontaneously over an intact perineum a vigorous and viable male infant from MENDEL position. No shoulder dystocia was encountered but a true knot of the umbilical cord was noted along with use nuchal cord. Skin to skin contact was initiated immediately and delayed cord clamping performed. Once the umbilical cord was doubly clamped and cut, a specimen was obtained for routine studies. The placenta was delivered shortly thereafter with gentle traction on the umbilical cord and suprapubic countertraction. Inspection of the placenta showed it to be intact with a central three-vessel cord insertion. Intravenous Pitocin was administered immediately following delivery placenta and post delivery blood losses were quickly brought under control. Inspection of the perineum showed a first-degree perineal laceration in the midline which was closed under local anesthesia with 2-0 chromic catgut suture. Sponge and needle counts were correct at the completion of the delivery process which was well tolerated by both mother and her baby. [place] Baby 1: Infant gender: Male Presentation: vertex Position: Left Occiput Anterior Placenta delivery description: Spontaneous Cord Vessel Description: 3 Vessels and True Knot Plan for aftercare: Routine care
[2023-08-02] MEDS: LIDOCAINE 1% 20 ML INJ (07:29)
[2023-08-02] MEDS: ACETAMINOPHEN 325 MG TABLET 650 MG PO ×2 (08:14→18:26)
[2023-08-02] MEDS: IBUPROFEN 600 MG TABLET PO ×2 (08:15→18:26)
[2023-08-02] MEDS: DERMOPLAST SPRAY 20% 60 ML 1 SPRAY TOP (18:32)
[2023-08-02] MEDS: DOCUSATE 100 MG CAPSULE PO (22:01)
[2023-08-02] MEDS: METFORMIN HCL 500 MG TABLET 1000 MG PO (22:01)
[2023-08-03] MEDS: ACETAMINOPHEN 325 MG TABLET 650 MG PO (05:03)
[2023-08-03] MEDS: IBUPROFEN 600 MG TABLET PO (05:04)
[2023-08-03 05:46] LABS: Add Manual Diff / Slide Review NO; Basophils Absolute Auto 0 /uL (0-100); Basophils Percent Auto 0.3 % (0-2); Eosinophils Absolute Auto 100 /uL (0-450); Hematocrit 24.4 % (36-46); Hemoglobin 8.5 g/dL (12.0-16.0); Lymphocytes Absolute Auto 2200 /uL (1100-4500); Lymphocytes Percent Auto 24.5 % (25-40); Mean Corpuscular Hemoglobin 28.6 PG (26-34); Mean Corpuscular Volume 81.8 fL (80-100); Monocytes Absolute Auto 700 /uL (0-900); Monocytes Percent Auto 7.4 % (3-14); Neutrophils Absolute Auto 5900 /uL (1500-7000); Neutrophils Percent Auto 66.8 % (50-75); Platelet Count 155 X10^3/uL (150-400); Red Blood Cell Count 2.98 X10^6/uL (4.0-5.2); Red Cell Distribution Width 14.5 % (11.6-14.8); White Blood Cell Count 8.9 X10^3/uL (4.5-11.0)
--- NOTE | 2023-08-03 08:51 | PM.OBDS.1 ---
Discharge Providers Provider Date of admission: 08/02/23 02:51 Discharge Date: 08/03/23 Primary care physician: Grant Velazquez DO Consults: 08/02/23 03:26 Consult to Anesthesiology Urgent Comment: Consulting Provider: Yasmany Caputo Reason for consultation: Epidural 08/03/23 07:22 Consult to Branch [employer] Routine Comment: Discharge provider: Bj Salomon MD Summary Hospital Course Date Patient Seen: 08/03/23 Time Patient Seen: 08:51 Diagnoses: Intrauterine gestation, [place], 37+ 3 weeks gestational age, delivered by spontaneous vaginal Gestational diabetes, type A2 Hospital Course: Marcy presented on 08/02/2023 with spontaneous rupture membranes. She progressed spontaneously in labor and delivered a viable male infant with Apgars of 9/9, weight 3350 g (7 lb 6.2 oz). Following delivery both mother and baby have done well with the mother experiencing prompt return of bowel and bladder function, she is ambulating independently, tolerating regular diet, and her pain is well controlled with oral medications. She will be discharged at this time to home in an afebrile normotensive condition after counseling regarding precautionary symptoms, limitations of activity, medications, and plans for follow-up which will be in 6 weeks. Medications at discharge will include resumption of vitamins and metformin but she will discontinue NPH and lispro use. She will use [id number] Tylenol and/or ibuprofen as needed for pain relief. Follow-up will be in 6 weeks but she will also need a 75 g GTT performed after about 12 weeks to rule out underlying type 2 diabetes. Peripartum Data Delivery Method: Natural Vaginal Laceration Description: Perineal - 1st Degree Episiotomy description: None Procedures: Spontaneous vaginal complications: none [place] 1: Gender: Male Disposition of : home Status at Discharge Cognitive/behavioral status at discharge: oriented Functional status at discharge: independent ambulation Overall status at discharge: patient is progressing back to baseline Time Spent with Patient Time attestation: Total time spent providing and/or coordinating discharge services: Objective Labs 08/03/23 05:39 Labs: Laboratory Results - last 24 hr 08/03/23 05:39 WBC 8.9 RBC 2.98 L Hgb 8.5 L Hct 24.4 L MCV 81.8 MCH 28.6 MCHC 35.0 RDW 14.5 Plt Count 155 Neut % (Auto) 66.8 Lymph % (Auto) 24.5 L [place] % (Auto) 7.4 Eos % (Auto) 1.0 L Baso % (Auto) 0.3 Neut # (Auto) 5900 Lymph # (Auto) 2200 [place] # (Auto) 700 Eos # (Auto) 100 Baso # (Auto) 0 Exam Const General: cooperative and comfortable Orientation: alert and awake [facility] Head: normal to inspection, normocephalic and atraumatic Eyes General: appearance normal, both eyes and all related structures Resp Effort & Inspection: normal respiratory effort and able to speak in complete sentences GI Inspection: normal to inspection Palpation: soft, no hepatosplenomegaly and mass (Firm, nontender fundus, U -4) Extrem Right lower extremity: normal to inspection Left lower extremity: normal to inspection Discharge Plan Discharge Plan Patient Disposition: Home Provider Discharge Comment: Please review the written instructions you received when you were discharged from the hospital. Your follow-up appointment will be scheduled for 6 weeks after your delivery and I look forward to seeing you then. If however in the meanwhile, you have any issues, concerns, or questions, please contact me either through the office phone at [phone], or via the patient portal. Discharge orders & Medications Prescriptions: Continued metformin 500 mg tablet 1,000 mg PO BID Qty: 360 2RF prenat.vits,teresa,ysc-wcqx-hqunw Tablet 1 tab PO DAILY Discontinued insulin lispro protamin-lispro 100 unit/mL (75-25) insulin pen 5 unit SUBCUT .TIDAC Qty: 15 4RF Humulin N NPH Insulin KwikPen 100 unit/mL (3 mL) insulin pen 15 unit SUBCUT QPM Qty: 15 4RF No Action (DME) pen needle, diabetic [1st Tier Unifine Pentips Plus] 31 gauge x 5/16 needle See Rx Instructions .Route Qty: 100 4RF Rx Instructions: As directed (DME) FreeStyle Christy 3 Sensor Device See Rx Instructions .Route Qty: 1 6RF Rx Instructions: As directed Follow up/Referrals: Grant Velazquez DO [Primary Care Provider] - Bj Salomon MD [Family Provider] - 6 Weeks (Please call [facility] to schedule a 6 week follow up appt. The appt. should be scheduled 6 weeks from your delivery date. ) Discharge Health Status Multidrug resistant organism: No MDRO Diet/Activity/Treatments Diet: Diet as Tolerated and Carb-consistent/Diabetic Activity: As tolerated Other treatments: [id number]-sxtjgpa Tylenol and/or ibuprofen may be used for additional pain relief. Vouc-hcp-lplokdb stool softeners and/or MiraLax may used as needed for constipation. Skin/Wound/Dressing Care Report to your healthcare provider any signs of infection, such as:: chills, fever, increased pain, unusual drainage and unusual redness Dressing: N/A Visit Report/Discharge Packet Instructions: DI for Labor and Delivery, Vaginal , DI for and Nipple Soreness Discharge Data Primary Care Provider: Grant Velazquez
[2023-08-03 09:03] VITALS: BP 105/38; PULSE 94; RESP 15; TEMP 36.3
== END 2023-08-03 09:55 | disposition home or self-care (01) | DRG 807 ==
PROVIDERS: Admitting Provider Obstetrics & Gynecology; Family Provider Obstetrics & Gynecology; PCP Hospitalist; Referring Provider Obstetrics & Gynecology; Visit Provider Obstetrics & Gynecology
DX: O42.02 Full-term premature rupture of membranes, onset of labor within 24 hours of rupture (principal); Z37.0 Single live birth; O24.414 Gestational diabetes mellitus in pregnancy, insulin controlled; O70.0 First degree perineal laceration during delivery; Z3A.37 37 weeks gestation of pregnancy
CPT/HCPCS: 36415; 59050; 59400; 85025; 86850; 86900; 86901; G0379; J2590